=== PATIENT | male | born 1960 | race Caucasian/White ===

== ENCOUNTER 2020-03-07 12:28 | Emergency (ER) | payer MEDICAID ==
[~2020-03-07] VITALS: Ht 180.3 cm; Wt 113.6 kg
[~2020-03-07 12:28] MED LIST: AMIT50TA3 PO; ARIP5TAB14 PO; BAC10T PO; DEXL60CA3 PO; GLYB6TAB PO; IBUP-812 PO; INSU100I12 SQ; METF1000 PO; NORCO10T PO; VENL-190 PO
[2020-03-07] MEDS ORDERED: PERM60CR19 TOP (12:37)
[2020-03-07 12:42] VITALS: BP 140/75
== END 2020-03-07 12:50 | disposition home or self-care (01) ==
LOC: ER 12:29
DX: B88.8 Other specified infestations (principal); Z88.0 Allergy status to penicillin; Z88.1 Allergy status to other antibiotic agents; Z88.8 Allergy status to other drugs, medicaments and biological substances; Z79.4 Long term (current) use of insulin; Z79.899 Other long term (current) drug therapy; Z87.828 Personal history of other (healed) physical injury and trauma
CPT/HCPCS: 99282; 99283